=== PATIENT | female | born 1965 | race Caucasian/White ===

== ENCOUNTER 2016-10-01 19:42 | Emergency (ER) | payer MEDICARE ==
[~2016-10-01] VITALS: Ht 172.7 cm; Wt 45.1 kg
[~2016-10-01 19:42] MED LIST: ANAS0.12 PO; CARB25TA4 PO; CIPR500T4 PO; CLON1 PO; CYAN1000P IM; LORTA5 PO; METO10TA PO; METO50TA OR; MIRA0.25 PO; PERC5TAB12 PO; PROT40TA PO; RANI1TAB7 PO; ZOFR4TAB3 SL
[2016-10-01 19:59] VITALS: BP 96/58; PULSE 101; RESP 18; TEMP 97.9; O2SAT 99
[2016-10-01] MEDS ORDERED: SODIUM CHLOR 0.9% 1000 ML INJ 1,000 ML IV ONE ×2 (20:27→22:30)
[2016-10-01 20:28] VITALS: PULSE 93; RESP 18
[2016-10-01 20:37] VITALS: BP 89/63; PULSE 88; RESP 18; O2SAT 98
[2016-10-01 20:54] VITALS: PULSE 88; RESP 18; O2SAT 97
[2016-10-01 20:59] LABS: HEMATOCRIT 50.5 % (35.0-46.0); MEAN CELL VOLUME 90.5 FL (80.0-100.0); MEAN CORPUSCULAR HEMOGLOBIN 30.1 PG (27.0-34.0); MEAN CORPUSCULAR HGB CONC 33.3 % (32.0-36.0); PLATELET COUNT 293 TH/MM3 (150-450); RED BLOOD COUNT 5.58 MIL/MM3 (4.00-5.30); RED CELL DISTRIBUTION WIDTH 15.2 % (11.6-17.2); WHITE BLOOD COUNT 13.3 TH/MM3 (4.0-11.0)
[2016-10-01 21:00] LABS: POTASSIUM 3.5 MEQ/L (3.5-5.1)
[2016-10-01 21:03] LABS: BICARBONATE 23.1 MEQ/L (21.0-32.0); MAGNESIUM 3.1 MG/DL (1.5-2.5)
[2016-10-01 21:08] LABS: HEMO FLAGS AUTO DIFF
[2016-10-01] MEDS: ONDANSETRON HCL 4 MG/2 ML VIAL IVP ONE ×2 (21:14→21:45)
[2016-10-01] MEDS ORDERED: CYAN1000P IM (21:28)
[2016-10-01] MEDS ORDERED: HYOS0.128 PO (21:28)
[2016-10-01] MEDS ORDERED: METO25TA3 PO (21:28)
[2016-10-01] MEDS ORDERED: PANT40TA3 PO (21:28)
[2016-10-01] MEDS ORDERED: RANI150C PO (21:28)
[2016-10-01] MEDS ORDERED: CLON2TAB PO (21:28)
[2016-10-01] MEDS ORDERED: CARB25TA9 PO (21:28)
[2016-10-01] MEDS ORDERED: BUDE3CAP PO (21:28)
[2016-10-01 21:35] LABS: BASOPHILS 1 % (0-2); NEUTROPHIL # MANUAL DIFF 9.7 TH/MM3 (1.8-7.7); POLYS (SEG NEUTROPHILS) 73 % (16-70); WBC DIFF SAMPLE 100
[2016-10-01 21:36] LABS: PLATELET ESTIMATE SMEAR NORMAL (NORMAL); PLATELET MORPHOLOGY NORMAL (NORMAL); SCAN/DIFF FINAL DIFF MANUAL
--- NOTE | 2016-10-01 21:37 | RADHPO ---
EXAM DATE/TIME: 10/01/2016 20:57 [place] COMPARISON: No previous studies available for comparison. INDICATIONS : Abdominal pain. MEDICAL HISTORY : None. SURGICAL HISTORY : None. ENCOUNTER: Initial ACUITY: 3 days PAIN SCORE: 7/10 LOCATION: Bilateral lower quadrant FINDINGS: Supine and upright views of the abdomen were performed. The abdominal bowel gas pattern is normal. No air fluid levels are seen. No abnormal masses, calcifications, or organomegaly is seen. The visu alized lower lungs are clear. No evidence of free intraperitoneal gas. The osseous structures are u nremarkable. CONCLUSION: Normal examination. 2 radiopaque pills project over the stomach. Narciso Arndt MD on October 01, 2016 at 21:28 Board Certified Radiologist. This report was verified electronically.
--- NOTE | 2016-10-01 23:01 | PD ---
HPI Chief Complaint: General Weakness Time Seen by Provider: 20:27 Travel History International Travel<30 days: No Contact w/Intl Traveler<30days: No Traveled to known affect area: No History of Present Illness HPI 50-year-old female presents to the emergency department for complaint of 2 days of diarrhea. Patient frequently has sudden onset repetitive diarrhea due to diagnosis of lymphocytic colitis. Patient is under the care of specialist and recently placed on Budesonide. Patient denies any fever or chills. Mild nausea. No vomiting. Patient only has pain associated with cramping just prior to lose diarrheal stool. Patient states oral intake appears to go straight through and has become very dehydrated since yesterday patient estimates that she's lost 5 pounds. Patient denies any mucoid or bloody diarrhea. Patient denies any dysuria frequency or urgency but does note decreased urine output. Patient also has had cramping in the lower extremities. Patient has taken oral potassium replacement. Patient typically has issues with electrolyte disturbance associated with multiple episodes of diarrhea due to her chronic recurrent diarrheal illness/colitis. Patient is unable to identify exacerbating or alleviating factors. Pain associated with cramping just prior to diarrhea stool is 6/10 in intensity, presently patient denies pain. PFSH Past Medical History Narrative Medical Medical record reviewed nursing notes reviewed Anxiety: Yes Depression: Yes Heart Rhythm Problems: No Cancer: No Cardiac Catheterization: Yes Cardiovascular Problems: Yes (TACHYCARDIA) High Cholesterol: No Congestive Heart Failure: No Cerebrovascular Accident: No Diabetes: No Diminished Hearing: No Gastrointestinal Disorders: Yes GERD: Yes Genitourinary: No Headaches: Yes Hiatal Hernia: Yes (GERD) Musculoskeletal: No Neurologic: Yes (TRIGEMINAL NEURALGIA repaired surgically) Psychiatric: Yes Reproductive: No Respiratory: No Migraines: Yes Seizures: No Influenza Vaccination: Yes ?: Not Past Surgical History Abdominal Surgery: Yes (ABLATION) Cardiac Surgery: Yes (CARDIAC CATH) Coronary Artery Bypass Graft: No Ear Surgery: No Eye Surgery: No Gynecologic Surgery: Yes (CONE BX; UTERINE ABALATION) Oral Surgery: Yes (DENTAL) Thoracic Surgery: Yes (BREAST ) Other Surgery: Yes Social History Alcohol Use: Yes (socially) Tobacco Use: No Substance Use: No Allergies-Medications (Allergen,Severity, Reaction): Coded Allergies: No Known Allergies (Verified , 10/01/16) Reported Meds & Prescriptions Reported Meds & Active Scripts Active Reported Cyanocobalamin Inj (Cyanocobalamin) 1,000 Mcg/Ml Inj 1,000 Mcg IM Q30D Budesonide DR (Budesonide) 3 Mg Capdr 3 Mg PO DAILY Clonazepam 2 Mg Tab 2 Mg PO DAILY Carbidopa-Levodopa 25-100 Mg Tab 1 Tab PO Q8HR Pantoprazole (Pantoprazole Sodium) 40 Mg Tab 40 Mg PO DAILY Metoprolol Tartrate 25 Mg Tab 25 Mg PO BID Ranitidine (Ranitidine HCl) 150 Mg Cap 150 Mg PO DAILY Hyoscyamine (Hyoscyamine Sulfate) 0.125 Mg Tab 0.125 Mg PO Q4H Review of Systems Except as stated in HPI: all other systems reviewed are Neg General / Constitutional: Positive: Weight Loss (estimates 5 pound weight loss in 2 days), No: Fever, Chills HENT: No: Congestion Cardiovascular: No: Chest Pain or Discomfort Respiratory: No: Cough, Shortness of Breath Gastrointestinal: Positive: Nausea, Diarrhea, Abdominal Pain (with diarrhea cramping none at this time), No: Vomiting, Hematemesis, Hematochezia, Constipation, Loss of Appetite Genitourinary: Positive: Decreased Urinary Output, No: Urgency, Frequency, Dysuria Musculoskeletal: Positive: Cramping (bilateral lower extremities), No: Myalgias, Arthralgias Skin: No Rash Neurologic: No: Weakness Psychiatric: No: Anxiety Endocrine: No: Heat Intolerance Hematologic/Lymphatic: No: Easy Bruising Physical Exam Narrative GENERAL: Well-developed thin female in no acute distress no respiratory distress SKIN: Warm and dry. HEAD: Normocephalic. EYES: No scleral icterus. No injection or drainage. NECK: Supple, trachea midline. No JVD or lymphadenopathy. CARDIOVASCULAR: Regular rate and rhythm without murmurs, gallops, or rubs. RESPIRATORY: Breath sounds equal bilaterally. No accessory muscle use. GASTROINTESTINAL: Abdomen soft, non-tender, no guarding no rebound. Nondistended. MUSCULOSKELETAL: No cyanosis, or edema. BACK: Nontender without obvious deformity. No CVA tenderness. Data Data Last Documented VS Vital Signs Date Time Temp Pulse Resp B/P Pulse Ox O2 Delivery O2 Flow Rate FiO2 10/01/16 20:54 88 18 97 Room Air 10/01/16 20:37 89/63 10/01/16 19:59 97.9 Orders Complete Blood Count With Diff (10/01/16 20:27) Lipase (10/01/16 20:27) Abdomen, Flat & Upright (10/01/16 ) Iv Access Insert/Monitor (10/01/16 20:27) Ecg Monitoring (10/01/16 20:27) Oximetry (10/01/16 20:27) Ondansetron Inj (Zofran Inj) (10/01/16 20:30) Sodium Chlor 0.9% 1000 Ml Inj (Ns 1000 M (10/01/16 20:27) Ua Includes Microscopic (10/01/16 20:27) Enteric Path (Stool) (10/01/16 20:27) Basic Metabolic Panel (Bmp) (10/01/16 20:27) Magnesium (Mg) (10/01/16 20:27) Sodium Chlor 0.9% 1000 Ml Inj (Ns 1000 M (10/01/16 22:30) Labs Laboratory Tests Test 10/01/16 10/01/16 20:45 20:50 White Blood Count 13.3 TH/MM3 Red Blood Count 5.58 MIL/MM3 Hemoglobin 16.8 GM/DL Hematocrit 50.5 % Mean Corpuscular Volume 90.5 FL Mean Corpuscular Hemoglobin 30.1 PG Mean Corpuscular Hemoglobin 33.3 % Concent Red Cell Distribution Width 15.2 % Platelet Count 293 TH/MM3 Mean Platelet Volume 9.4 FL Neutrophils (%) (Auto) % Lymphocytes (%) (Auto) % Monocytes (%) (Auto) % Eosinophils (%) (Auto) % Basophils (%) (Auto) % Neutrophils # (Auto) TH/MM3 Lymphocytes # (Auto) TH/MM3 Monocytes # (Auto) TH/MM3 Eosinophils # (Auto) TH/MM3 Basophils # (Auto) TH/MM3 CBC Comment AUTO DIFF Differential Total Cells 100 Counted Neutrophils % (Manual) 73 % Lymphocytes % 17 % Monocytes % 9 % Basophils % 1 % Neutrophils # (Manual) 9.7 TH/MM3 Differential Comment FINAL DIFF MANUAL Platelet Estimate NORMAL Platelet Morphology Comment NORMAL Red Cell Morphology Comment NORMAL Sodium Level 129 MEQ/L Potassium Level 3.5 MEQ/L Chloride Level 91 MEQ/L Carbon Dioxide Level 23.1 MEQ/L Anion Gap 15 MEQ/L Blood Urea Nitrogen 43 MG/DL Creatinine 1.50 MG/DL Estimat Glomerular Filtration 37 ML/MIN Rate Random Glucose 91 MG/DL Calcium Level 9.9 MG/DL Magnesium Level 3.1 MG/DL Lipase 319 U/L Urine Color YELLOW Urine Turbidity SLIGHT Urine pH 5.0 Urine Specific [place] 1.022 Urine Protein 30 mg/dL Urine Glucose (UA) NEG mg/dL Urine Ketones NEG mg/dL Urine Occult Blood NEG Urine Nitrite NEG Urine Bilirubin NEG Urine Leukocyte Esterase NEG Urine RBC 0-3 /hpf Urine WBC 0-2 /hpf Urine Squamous Epithelial 0-5 /hpf Cells Urine Bacteria FEW /hpf Urine Hyaline Casts 25-49 /lpf Urine Mucus FEW /lpf MDM Medical Decision Making Medical Screen Exam Complete: Yes Emergency Medical Condition: Yes Medical Record Reviewed: Yes Interpretation(s) UA: grossly wnl few bacteria; specific gravity after 1.5 L NS ---1.022 Last Impressions Abdomen X-Ray 10/01/16 0000 Signed Impressions: Service Date/Time: Saturday, October 01, 2016 20:57 - CONCLUSION: Normal examination. 2 radiopaque pills project over the stomach. Narciso Arndt MD CBC & BMP Diagram 10/01/16 20:45 Vital Signs Date Time Temp Pulse Resp B/P Pulse Ox O2 Delivery O2 Flow Rate FiO2 10/01/16 20:54 88 18 97 Room Air 10/01/16 20:37 96 18 98 Room Air 10/01/16 20:37 88 18 89/63 98 Room Air 10/01/16 20:28 93 18 10/01/16 19:59 97.9 101 18 96/58 99 Differential Diagnosis Diarrheal illness, dehydration, electronic disturbance, gastroenteritis, adverse medication reaction, colitis, diverticulitis Narrative Course After 1/2 L of normal saline infusion patient able to produce urine; urine specimen sent for study Diagnosis Primary Impression: Diarrhea Additional Impressions: Dehydration Hyponatremia Renal insufficiency Referrals: Primary Care Physician 1 day Patient Instructions: General Instructions Additional Instructions: Increase fluid hydration Follow-up with your primary care provider Take medication as prescribed as needed for nausea and/or vomiting Take acetaminophen as needed for fever 100.4F or greater Med/Other Pt SpecificInfo: Prescription(s) given Scripts Ondansetron Odt (Zofran Odt)4 Mg Tab4 Mg SL Q6HR PRN (Nausea/Vomiting) #15 TAB Ref 0 Prov:Jeanne Wilcox MD 10/02/16 Disposition: 01 DISCHARGE HOME Condition: Stable Jeanne Wilcox MD Oct 01, 2016 23:00
[2016-10-01 23:07] LABS: BLOOD, URINE NEG (NEG); GLUCOSE,URINE NEG (NEG); KETONE, URINE NEG (NEG); NITRITE,URINE NEG (NEG)
[2016-10-01 23:21] LABS: URINE COLOR YELLOW (YELLW/STRAW)
[2016-10-01 23:22] LABS: MUCUS URINE FEW /lpf (OCC); SQUAMOUS EPITHELIAL CELL URINE 0-5 /hpf (0-5)
[2016-10-01 23:24] LABS: BACTERIA, URINE FEW /hpf; RBC, URINE 0-3 /hpf (0-3); WBC, URINE 0-2 /hpf (0-5)
[2016-10-02] MEDS ORDERED: ZOFR4TAB3 SL
[2016-10-02 00:07] VITALS: BP 92/46
[2016-10-02 00:08] VITALS: BP 92/46; PULSE 71; RESP 16; O2SAT 100
== END 2016-10-02 00:21 | disposition home or self-care (01) ==
LOC: PHED 19:42
DX: R19.7 Diarrhea, unspecified (principal); E86.0 Dehydration; E87.1 Hypo-osmolality and hyponatremia; N28.9 Disorder of kidney and ureter, unspecified; R00.0 Tachycardia, unspecified; K21.9 Gastro-esophageal reflux disease without esophagitis; R63.4 Abnormal weight loss; R11.0 Nausea; R10.9 Unspecified abdominal pain
CPT/HCPCS: 74020; 80048; 81001; 83690; 83735; 85007; 85027; 96361; 96374; 99284; J2405; J7030

== ENCOUNTER 2016-10-04 16:53 | Emergency (ER) | payer MEDICARE ==
[~2016-10-04] VITALS: Ht 172.7 cm; Wt 44.0 kg
[~2016-10-04 16:53] MED LIST changes: -ANAS0.12 PO; +BUDE3CAP PO; -CARB25TA4 PO; +CARB25TA9 PO; -CIPR500T4 PO; -CLON1 PO; +CLON2TAB PO; +HYOS0.128 PO; -LORTA5 PO; -METO10TA PO; +METO25TA3 PO; -METO50TA OR; -MIRA0.25 PO; +PANT40TA3 PO; -PERC5TAB12 PO; -PROT40TA PO; +RANI150C PO; -RANI1TAB7 PO
[2016-10-04 16:54] VITALS: BP 95/66; PULSE 112; RESP 18; TEMP 98; O2SAT 98
[2016-10-04] MEDS ORDERED: SODIUM CHLOR 0.9% 1000 ML INJ 1,000 ML IV SCH (17:29)
[2016-10-04] MEDS ORDERED: ONDANSETRON HCL 4 MG/2 ML VIAL IVP ONE (17:30)
[2016-10-04] MEDS ORDERED: SODIUM CHLORIDE 0.9% FLUSH 10 ML FLUSH IV FLUSH PRN (17:30)
--- NOTE | 2016-10-04 17:35 | PD ---
HPI Chief Complaint: GI Complaint Time Seen by Provider: 17:22 Travel History International Travel<30 days: No Contact w/Intl Traveler<30days: No Traveled to known affect area: No History of Present Illness HPI 50-year-old female with history of lymphocytic colitis, diarrhea, here for evaluation of possible dehydration. Patient was here 4 days ago for this same and felt better after receiving IV fluids. She is having intermittent abdominal cramping. Bowel movements are nonbloody. She feels nauseous, but has not vomited. She denies fevers or chills. PFSH Past Medical History Anxiety: Yes Depression: Yes Heart Rhythm Problems: No Cancer: No Cardiac Catheterization: Yes Cardiovascular Problems: Yes (TACHYCARDIA) High Cholesterol: No Congestive Heart Failure: No Cerebrovascular Accident: No Diabetes: No Diminished Hearing: No Gastrointestinal Disorders: Yes GERD: Yes Genitourinary: No Headaches: Yes Hiatal Hernia: Yes (GERD) Musculoskeletal: No Neurologic: Yes (TRIGEMINAL NEURALGIA repaired surgically) Psychiatric: Yes Reproductive: No Respiratory: No Migraines: Yes Seizures: No Tetanus Vaccination: > 5 Years Influenza Vaccination: Yes ?: Not Past Surgical History Abdominal Surgery: Yes (ABLATION) Cardiac Surgery: Yes (CARDIAC CATH) Coronary Artery Bypass Graft: No Ear Surgery: No Eye Surgery: No Gynecologic Surgery: Yes (CONE BX; UTERINE ABALATION) Oral Surgery: Yes (DENTAL) Thoracic Surgery: Yes (BREAST ) Other Surgery: Yes Social History Alcohol Use: Yes (socially) Tobacco Use: No Substance Use: No Allergies-Medications (Allergen,Severity, Reaction): Coded Allergies: No Known Allergies (Verified , 10/04/16) Reported Meds & Prescriptions Reported Meds & Active Scripts Active Zofran Odt (Ondansetron Odt) 4 Mg Tab 4 Mg SL Q6HR PRN Reported Cyanocobalamin Inj (Cyanocobalamin) 1,000 Mcg/Ml Inj 1,000 Mcg IM Q30D Budesonide DR (Budesonide) 3 Mg Capdr 3 Mg PO DAILY Clonazepam 2 Mg Tab 2 Mg PO DAILY Carbidopa-Levodopa 25-100 Mg Tab 1 Tab PO Q8HR Pantoprazole (Pantoprazole Sodium) 40 Mg Tab 40 Mg PO DAILY Metoprolol Tartrate 25 Mg Tab 25 Mg PO BID Ranitidine (Ranitidine HCl) 150 Mg Cap 150 Mg PO DAILY Hyoscyamine (Hyoscyamine Sulfate) 0.125 Mg Tab 0.125 Mg PO Q4H Review of Systems Except as stated in HPI: all other systems reviewed are Neg Physical Exam Narrative GENERAL: Well-developed, very thin, comfortable, no acute distress. SKIN: Focused skin assessment warm/dry. HEAD: Atraumatic. Normocephalic. EYES: Pupils equal and round. No scleral icterus. No injection or drainage. ENT: Mucous membranes pink and dry. NECK: Trachea midline. No JVD. CARDIOVASCULAR: Regular rate and rhythm. RESPIRATORY: No accessory muscle use. Clear to auscultation. Breath sounds equal bilaterally. GASTROINTESTINAL: Abdomen soft, non-tender, nondistended. MUSCULOSKELETAL: No obvious deformities. No clubbing. No cyanosis. No edema. NEUROLOGICAL: Awake and alert. No obvious cranial nerve deficits. Motor grossly within normal limits. Normal speech. PSYCHIATRIC: Appropriate mood and affect; insight and judgment normal. Data Data Last Documented VS Vital Signs Date Time Temp Pulse Resp B/P Pulse Ox O2 Delivery O2 Flow Rate FiO2 10/04/16 18:46 81 18 84/50 100 Room Air 10/04/16 16:54 98.0 Orders Complete Blood Count With Diff (10/04/16 17:29) Comprehensive Metabolic Panel (10/04/16 17:29) Urinalysis - C+S If Indicated (10/04/16 17:29) Iv Access Insert/Monitor (10/04/16 17:29) Ecg Monitoring (10/04/16 17:29) Oximetry (10/04/16 17:29) Ondansetron Inj (Zofran Inj) (10/04/16 17:30) Sodium Chlor 0.9% 1000 Ml Inj (Ns 1000 M (10/04/16 17:29) Sodium Chloride 0.9% Flush (Ns Flush) (10/04/16 17:30) Sodium Chlor 0.9% 1000 Ml Inj (Ns 1000 M (10/04/16 18:30) Urine Culture (10/04/16 18:45) Labs Laboratory Tests Test 10/04/16 10/04/16 17:35 18:45 White Blood Count 13.4 TH/MM3 Red Blood Count 5.70 MIL/MM3 Hemoglobin 16.9 GM/DL Hematocrit 51.3 % Mean Corpuscular Volume 90.0 FL Mean Corpuscular Hemoglobin 29.7 PG Mean Corpuscular Hemoglobin 33.0 % Concent Red Cell Distribution Width 15.1 % Platelet Count 295 TH/MM3 Mean Platelet Volume 9.8 FL Neutrophils (%) (Auto) 72.8 % Lymphocytes (%) (Auto) 13.2 % Monocytes (%) (Auto) 9.3 % Eosinophils (%) (Auto) 0.8 % Basophils (%) (Auto) 3.9 % Neutrophils # (Auto) 9.8 TH/MM3 Lymphocytes # (Auto) 1.8 TH/MM3 Monocytes # (Auto) 1.3 TH/MM3 Eosinophils # (Auto) 0.1 TH/MM3 Basophils # (Auto) 0.5 TH/MM3 CBC Comment DIFF FINAL Differential Comment Sodium Level 131 MEQ/L Potassium Level 3.5 MEQ/L Chloride Level 96 MEQ/L Carbon Dioxide Level 19.2 MEQ/L Anion Gap 16 MEQ/L Blood Urea Nitrogen 37 MG/DL Creatinine 1.50 MG/DL Estimat Glomerular Filtration 37 ML/MIN Rate Random Glucose 165 MG/DL Calcium Level 10.4 MG/DL Total Bilirubin 0.3 MG/DL Aspartate Amino Transf 38 U/L (AST/SGOT) Alanine Aminotransferase 39 U/L (ALT/SGPT) Alkaline Phosphatase 85 U/L Total Protein 9.0 GM/DL Albumin 4.8 GM/DL Urine Color YELLOW Urine Turbidity CLEAR Urine pH 5.0 Urine Specific [place] 1.026 Urine Protein 100 mg/dL Urine Glucose (UA) NEG mg/dL Urine Ketones TRACE mg/dL Urine Occult Blood TRACE Urine Nitrite NEG Urine Bilirubin NEG Urine Leukocyte Esterase NEG Urine RBC 0-3 /hpf Urine WBC 6-8 /hpf Urine Squamous Epithelial 0-5 /hpf Cells Urine Bacteria MOD /hpf Urine Hyaline Casts 10-14 /lpf Urine Mucus FEW /lpf Microscopic Urinalysis Comment CULTURE INDICATED MDM Medical Decision Making Medical Screen Exam Complete: Yes Emergency Medical Condition: Yes Differential Diagnosis Dehydration, metabolic abnormality Narrative Course Initial vital signs show heart rate of 112 which improved to 81 after a liter of normal saline IV, blood pressure 95/66, pulse ox 98% on room air, oral temp of 98F. CBC shows WBC 13.4, hemoglobin 16.9, hematocrit 51.3, platelets 295. CMP shows sodium 131, chloride 96, bicarbonate 19.2, anion gap 16, BUN 37, creatinine 1.5, GFR 37, calcium 10.4 UA shows trace ketones, trace occult blood, 6-8 WBCs, moderate bacteria, negative nitrites, negative leukocyte esterase. Will treat with Rocephin. Patient was given 2 L normal saline IV and IV Zofran and is feeling much better. She is tolerating clear liquids orally. She states she would like to be discharged home. I instructed her to follow up with her specialist at the [facility] this week. She was informed on when to return to the emergency department. She verbalizes understanding and agreement with plan. Diagnosis Primary Impression: Dehydration Additional Impressions: Diarrhea Qualified Code: R19.7 - Diarrhea, unspecified type Renal insufficiency Bacteriuria Referrals: Primary Care Physician 3 days Additional Instructions: Follow-up with your specialist at the [facility] this week. Stay hydrated with plenty of fluids. Return to the emergency department for worsening symptoms or any other concerns. Scripts Nitrofurantoin Monohydrate Macrocrystals (Macrobid)100 Mg [id number] Mg PO BID 5 Days Ref 0 Prov:Nicholas Holcomb MD 10/04/16 Ondansetron Odt (Zofran Odt)4 Mg Tab4 Mg SL Q8HR PRN (Nausea/Vomiting) #30 TAB Ref 3 Prov:Nicholas Holcomb MD 10/04/16 Disposition: 01 DISCHARGE HOME Condition: Stable Nicholas Holcomb MD Oct 04, 2016 17:35
[2016-10-04 17:49] LABS: AUTOMATED NEUTROPHIL # 9.8 TH/MM3 (1.8-7.7); BASOPHIL # 0.5 TH/MM3 (0-0.2); BASOPHIL % 3.9 % (0.0-2.0); EOSINOPHIL # 0.1 TH/MM3 (0-0.4); EOSINOPHIL % 0.8 % (0.0-4.0); HEMATOCRIT 51.3 % (35.0-46.0); HEMO FLAGS DIFF FINAL; LYMPH % 13.2 % (9.0-44.0); LYMPHOCYTE # 1.8 TH/MM3 (1.0-4.8); MEAN CORPUSCULAR HEMOGLOBIN 29.7 PG (27.0-34.0); MONO % 9.3 % (0.0-8.0); NEUT % 72.8 % (16.0-70.0); PLATELET COUNT 295 TH/MM3 (150-450); RED CELL DISTRIBUTION WIDTH 15.1 % (11.6-17.2); WHITE BLOOD COUNT 13.4 TH/MM3 (4.0-11.0)
[2016-10-04 17:58] LABS: CHLORIDE 96 MEQ/L (98-107); POTASSIUM 3.5 MEQ/L (3.5-5.1); SODIUM (NA) 131 MEQ/L (136-145)
[2016-10-04 17:59] VITALS: RESP 18; O2SAT 96
[2016-10-04 18:01] LABS: ANION GAP 16 MEQ/L (5-15); BICARBONATE 19.2 MEQ/L (21.0-32.0); BLOOD UREA NITROGEN 37 MG/DL (7-18)
[2016-10-04 18:04] LABS: ALT (GPT) 39 U/L (10-53); AST (GOT) 38 U/L (15-37); GLOMERULAR FILTRATION RATE 37 ML/MIN (>89)
[2016-10-04 18:06] LABS: TOTAL BILIRUBIN ADULT 0.3 MG/DL (0.2-1.0)
[2016-10-04 18:07] LABS: ALKALINE PHOSPHATASE 85 U/L (45-117)
[2016-10-04] MEDS ORDERED: SODIUM CHLOR 0.9% 1000 ML INJ 1,000 ML IV ONE (18:30)
[2016-10-04 18:46] VITALS: BP 84/50; PULSE 81; RESP 18; O2SAT 100
[2016-10-04 18:56] LABS: BLOOD, URINE TRACE (NEG); GLUCOSE,URINE NEG (NEG); KETONE, URINE TRACE mg/dL (NEG); NITRITE,URINE NEG (NEG)
[2016-10-04 19:05] LABS: URINE COLOR YELLOW (YELLW/STRAW)
[2016-10-04 19:06] LABS: MUCUS URINE FEW /lpf (OCC)
[2016-10-04 19:07] LABS: BACTERIA, URINE MOD /hpf; COMMENT (UR) CULTURE INDICATED; CULTURE IF INDICATED CULTURE INDICATED; RBC, URINE 0-3 /hpf (0-3); SQUAMOUS EPITHELIAL CELL URINE 0-5 /hpf (0-5)
[2016-10-04] MEDS ORDERED: ZOFR4TAB3 SL (19:23)
[2016-10-04] MEDS ORDERED: MACR100C2 PO (19:23)
[2016-10-04] MEDS ORDERED: cefTRIAXone INJ 1,000 MG in SODIUM CHLORIDE 0.9% INJ 100 ML IV ONE (19:30)
[2016-10-04 20:15] VITALS: BP 91/57; PULSE 78; RESP 18; O2SAT 100
== END 2016-10-04 20:39 | disposition home or self-care (01) ==
LOC: PHED 16:53
DX: E86.0 Dehydration (principal); R19.7 Diarrhea, unspecified; N28.9 Disorder of kidney and ureter, unspecified; R82.71 Bacteriuria; R11.0 Nausea; Z87.19 Personal history of other diseases of the digestive system; Z86.59 Personal history of other mental and behavioral disorders; Z86.79 Personal history of other diseases of the circulatory system; Z86.69 Personal history of other diseases of the nervous system and sense organs
CPT/HCPCS: 80053; 81001; 85025; 87086; 96361; 96365; 96375; 99284; J0696; J2405; J7030

== ENCOUNTER 2016-11-22 07:36 | Emergency (ER) | payer MEDICARE ==
[~2016-11-22] VITALS: Ht 172.7 cm; Wt 46.8 kg
[~2016-11-22 07:36] MED LIST changes: +MACR100C2 PO
[2016-11-22 07:45] VITALS: BP 90/57; PULSE 82; RESP 16; TEMP 97.8; O2SAT 100
[2016-11-22] MEDS ORDERED: ONDANSETRON HCL 4 MG/2 ML VIAL IVP ONE (07:45)
[2016-11-22] MEDS ORDERED: SODIUM CHLOR 0.9% 1000 ML INJ 1,000 ML IV SCH (07:45)
[2016-11-22] MEDS ORDERED: SODIUM CHLORIDE 0.9% FLUSH 10 ML FLUSH IV FLUSH PRN (07:45)
--- NOTE | 2016-11-22 07:57 | PD ---
HPI Chief Complaint: Abdominal Pain Time Seen by Provider: 07:43 Travel History International Travel<30 days: No Contact w/Intl Traveler<30days: No Traveled to known affect area: No History of Present Illness HPI Patient is a 51-year-old female with history of trigeminal neuralgia, lymphocytic colitis currently being treated at the [facility], presents to emergency room with complaints of abdominal pain, nausea vomiting and chronic diarrhea. Patient reports that she always has diarrhea which is at her baseline , that this morning, she has been feeling nauseous and has been vomiting. Reports that she has been having severe epigastric abdominal pain is concerned for possible pancreatitis. Patient reports that she has never been diagnosed with pancreatitis in the past, reports that she thinks that she has had pancreatitis but did not follow-up physician for this when she had her symptoms. Patient reports that locally, she does follow with Dr. Otero in the office. Reports that no one knows how to treat her lymphocytic colitis. Patient currently not on any antibiotics at this time. Patient denies any fevers or chills or any recent travels. PFSH Past Medical History Anxiety: Yes Depression: Yes Heart Rhythm Problems: No Cancer: No Cardiac Catheterization: Yes Cardiovascular Problems: Yes (TACHYCARDIA) High Cholesterol: No Congestive Heart Failure: No Cerebrovascular Accident: No Diabetes: No Diminished Hearing: No Gastrointestinal Disorders: Yes (LYMPHOCYTIC COLITIS ) GERD: Yes Genitourinary: No Headaches: Yes Hiatal Hernia: Yes (GERD) Musculoskeletal: No Neurologic: Yes (TRIGEMINAL NEURALGIA repaired surgically) Psychiatric: Yes Reproductive: No Respiratory: No Migraines: Yes Seizures: No Tetanus Vaccination: > 5 Years ?: Not Past Surgical History Abdominal Surgery: Yes (ABLATION) Cardiac Surgery: Yes (CARDIAC CATH) Coronary Artery Bypass Graft: No Ear Surgery: No Eye Surgery: No Gynecologic Surgery: Yes (CONE BX; UTERINE ABALATION) Oral Surgery: Yes (DENTAL) Thoracic Surgery: Yes (BREAST ) Other Surgery: Yes Social History Alcohol Use: Yes (socially) Tobacco Use: No Substance Use: No Allergies-Medications (Allergen,Severity, Reaction): Coded Allergies: No Known Allergies (Verified , 11/22/16) Reported Meds & Prescriptions Reported Meds & Active Scripts Active Macrobid (Nitrofurantoin Monoh/Nitrofur Macro) 100 Mg Cap 100 Mg PO BID 5 Days Zofran Odt (Ondansetron Odt) 4 Mg Tab 4 Mg SL Q8HR PRN Zofran Odt (Ondansetron Odt) 4 Mg Tab 4 Mg SL Q6HR PRN Reported Cyanocobalamin Inj (Cyanocobalamin) 1,000 Mcg/Ml Inj 1,000 Mcg IM Q30D Budesonide DR (Budesonide) 3 Mg Capdr 3 Mg PO DAILY Clonazepam 2 Mg Tab 2 Mg PO DAILY Carbidopa-Levodopa 25-100 Mg Tab 1 Tab PO Q8HR Pantoprazole (Pantoprazole Sodium) 40 Mg Tab 40 Mg PO DAILY Metoprolol Tartrate 25 Mg Tab 25 Mg PO BID Ranitidine (Ranitidine HCl) 150 Mg Cap 150 Mg PO DAILY Hyoscyamine (Hyoscyamine Sulfate) 0.125 Mg Tab 0.125 Mg PO Q4H Review of Systems General / Constitutional: No: Fever Eyes: No: Visual changes HENT: No: Headaches Cardiovascular: No: Chest Pain or Discomfort Respiratory: No: Shortness of Breath Gastrointestinal: Positive: Nausea, Vomiting, Diarrhea, Abdominal Pain Genitourinary: No: Dysuria Musculoskeletal: No: Pain Skin: No Rash Neurologic: No: Weakness Psychiatric: No: Depression Endocrine: No: Polydipsia Hematologic/Lymphatic: No: Easy Bruising Physical Exam Narrative GENERAL: Moderate distress SKIN: Focused skin assessment warm/dry. HEAD: Atraumatic. Normocephalic. EYES: Pupils equal and round. No scleral icterus. No injection or drainage. ENT: No nasal bleeding or discharge. Mucous membranes pink and moist. NECK: Trachea midline. No JVD. CARDIOVASCULAR: Regular rate and rhythm. No murmur appreciated. RESPIRATORY: No accessory muscle use. Clear to auscultation. Breath sounds equal bilaterally. GASTROINTESTINAL: Abdomen soft, tenderness to the epigastrium with guarding on exam. MUSCULOSKELETAL: No obvious deformities. No clubbing. No cyanosis. No edema. NEUROLOGICAL: Awake and alert. No obvious cranial nerve deficits. Motor grossly within normal limits. Normal speech. PSYCHIATRIC: Patient anxious Data Data Last Documented VS Vital Signs Date Time Temp Pulse Resp B/P Pulse Ox O2 Delivery O2 Flow Rate FiO2 11/22/16 11:04 67 16 88/54 99 Room Air 11/22/16 08:29 97.8 Orders Urinalysis - C+S If Indicated (11/22/16 07:37) Complete Blood Count With Diff (11/22/16 07:45) Comprehensive Metabolic Panel (11/22/16 07:45) Lipase (11/22/16 07:45) Prothrombin Time / Inr (Pt) (11/22/16 07:45) Act Partial Throm Time (Ptt) (11/22/16 07:45) Iv Access Insert/Monitor (11/22/16 07:45) Ecg Monitoring (11/22/16 07:45) Oximetry (11/22/16 07:45) Ondansetron Inj (Zofran Inj) (11/22/16 07:45) Sodium Chlor 0.9% 1000 Ml Inj (Ns 1000 M (11/22/16 07:45) Sodium Chloride 0.9% Flush (Ns Flush) (11/22/16 07:45) Ed Urine Pregnancytest Poc (11/22/16 07:45) Ct Abd/Pel W Iv Contrast(Rout) (11/22/16 07:51) Sodium Chlor 0.9% 1000 Ml Inj (Ns 1000 M (11/22/16 08:00) Morphine Inj (Morphine Inj) (11/22/16 08:00) Potassium Chloride Powder (Kcl Powder) (11/22/16 09:00) Potassium Phosphate Inj (Potassium Phosp (11/22/16 09:00) Sodium Chlor 0.9% 1000 Ml Inj (Ns 1000 M (11/22/16 09:45) Iohexol 350 Inj (Omnipaque 350 Inj) (11/22/16 10:09) Calcium Gluconate Inj (Calcium Gluconate (11/22/16 11:15) Labs Laboratory Tests Test 11/22/16 11/22/16 08:02 10:10 White Blood Count 14.7 TH/MM3 Red Blood Count 5.40 MIL/MM3 Hemoglobin 16.4 GM/DL Hematocrit 51.1 % Mean Corpuscular Volume 94.6 FL Mean Corpuscular Hemoglobin 30.3 PG Mean Corpuscular Hemoglobin 32.0 % Concent Red Cell Distribution Width 14.8 % Platelet Count 281 TH/MM3 Mean Platelet Volume 10.4 FL Neutrophils (%) (Auto) % Lymphocytes (%) (Auto) % Monocytes (%) (Auto) % Eosinophils (%) (Auto) % Basophils (%) (Auto) % Neutrophils # (Auto) TH/MM3 Lymphocytes # (Auto) TH/MM3 Monocytes # (Auto) TH/MM3 Eosinophils # (Auto) TH/MM3 Basophils # (Auto) TH/MM3 CBC Comment AUTO DIFF Differential Total Cells 100 Counted Neutrophils % (Manual) 81 % Lymphocytes % 8 % Monocytes % 11 % Neutrophils # (Manual) 11.9 TH/MM3 Differential Comment AUTO DIFF CONFIRMED Platelet Estimate NORMAL Platelet Morphology Comment NORMAL Prothrombin Time 10.3 SEC Prothromb Time International 0.9 RATIO Ratio Activated Partial 26.0 SEC Thromboplast Time Sodium Level 139 MEQ/L Potassium Level 2.6 MEQ/L Chloride Level 101 MEQ/L Carbon Dioxide Level 28.7 MEQ/L Anion Gap 9 MEQ/L Blood Urea Nitrogen 12 MG/DL Creatinine 0.99 MG/DL Estimat Glomerular Filtration 60 ML/MIN Rate Random Glucose 135 MG/DL Calcium Level 7.3 MG/DL Protein Corrected Calcium 7.7 MG/DL Total Bilirubin 0.4 MG/DL Aspartate Amino Transf 58 U/L (AST/SGOT) Alanine Aminotransferase 37 U/L (ALT/SGPT) Alkaline Phosphatase 62 U/L Total Protein 6.4 GM/DL Albumin 3.1 GM/DL Lipase 479 U/L Urine Collection Type CLEAN CATCH Urine Color QUINN Urine Turbidity CLEAR Urine pH 5.5 Urine Specific [place] 1.030 Urine Protein 100 mg/dL Urine Glucose (UA) 100 mg/dL Urine Ketones TRACE mg/dL Urine Occult Blood TRACE Urine Nitrite NEG Urine Bilirubin SMALL Urine Leukocyte Esterase NEG Urine RBC 0-3 /hpf Urine WBC 0-2 /hpf Urine Squamous Epithelial 0-5 /hpf Cells Urine Hyaline Casts 25-49 /lpf Microscopic Urinalysis Comment CULT NOT INDICATED Urine Collection Time 10:10 [facility] Medical Decision Making Medical Screen Exam Complete: Yes Emergency Medical Condition: Yes Interpretation(s) Vital Signs Date Time Temp Pulse Resp B/P Pulse Ox O2 Delivery O2 Flow Rate FiO2 11/22/16 07:45 16 11/22/16 07:45 97.8 82 16 90/57 100 Room Air Differential Diagnosis Cystitis, dehydration, electrolyte abnormality, pancreatitis, colitis, gastroenteritis Narrative Course 51-year-old female with history of lymphocytic colitis presents to emergency room with complaints of nausea, vomiting and diarrhea since this morning. Reports that she has been having severe epigastric pain, reports the pain is more severe than in the past when she has had the symptoms. Patient uncomfortable exam, patient was placed on a rapid transit operator upon arrival to the emergency room. CBC, BMP, lipase, ct of the abdomen and pelvis ordered for further evaluation of symptoms. Will give IV fluids and pain control this time. Vital Signs Date Time Temp Pulse Resp B/P Pulse Ox O2 Delivery O2 Flow Rate FiO2 11/22/16 11:04 67 16 88/54 99 Room Air 11/22/16 09:46 66 16 86/58 98 Room Air 11/22/16 09:46 16 11/22/16 08:29 97.8 82 16 90/57 100 11/22/16 08:07 100 Room Air 11/22/16 07:45 16 11/22/16 07:45 97.8 82 16 90/57 100 Room Air Laboratory Tests Test 11/22/16 11/22/16 08:02 10:10 White Blood Count 14.7 TH/MM3 (4.0-11.0) Red Blood Count 5.40 MIL/MM3 (4.00-5.30) Hemoglobin 16.4 GM/DL (11.6-15.3) Hematocrit 51.1 % (35.0-46.0) Mean Corpuscular Volume 94.6 FL (80.0-100.0) Mean Corpuscular Hemoglobin 30.3 PG (27.0-34.0) Mean Corpuscular Hemoglobin 32.0 % Concent (32.0-36.0) Red Cell Distribution Width 14.8 % (11.6-17.2) Platelet Count 281 TH/MM3 (150-450) Mean Platelet Volume 10.4 FL (7.0-11.0) Neutrophils (%) (Auto) % (16.0-70.0) Lymphocytes (%) (Auto) % (9.0-44.0) Monocytes (%) (Auto) % (0.0-8.0) Eosinophils (%) (Auto) % (0.0-4.0) Basophils (%) (Auto) % (0.0-2.0) Neutrophils # (Auto) TH/MM3 (1.8-7.7) Lymphocytes # (Auto) TH/MM3 (1.0-4.8) Monocytes # (Auto) TH/MM3 (0-0.9) Eosinophils # (Auto) TH/MM3 (0-0.4) Basophils # (Auto) TH/MM3 (0-0.2) CBC Comment AUTO DIFF Differential Total Cells 100 Counted Neutrophils % (Manual) 81 % (16-70) Lymphocytes % 8 % (9-44) Monocytes % 11 % (0-8) Neutrophils # (Manual) 11.9 TH/MM3 (1.8-7.7) Differential Comment AUTO DIFF CONFIRMED Platelet Estimate NORMAL (NORMAL) Platelet Morphology Comment NORMAL (NORMAL) Prothrombin Time 10.3 SEC (9.8-11.6) Prothromb Time International 0.9 RATIO Ratio Activated Partial 26.0 SEC Thromboplast Time (24.3-30.1) Sodium Level 139 MEQ/L (136-145) Potassium Level 2.6 MEQ/L (3.5-5.1) Chloride Level 101 MEQ/L (98-107) Carbon Dioxide Level 28.7 MEQ/L (21.0-32.0) Anion Gap 9 MEQ/L (5-15) Blood Urea Nitrogen 12 MG/DL (7-18) Creatinine 0.99 MG/DL (0.50-1.00) Estimat Glomerular Filtration 60 ML/MIN (>89) Rate Random Glucose 135 MG/DL (74-106) Calcium Level 7.3 MG/DL (8.5-10.1) Protein Corrected Calcium 7.7 MG/DL (8.5-10.1) Total Bilirubin 0.4 MG/DL (0.2-1.0) Aspartate Amino Transf 58 U/L (15-37) (AST/SGOT) Alanine Aminotransferase 37 U/L (10-53) (ALT/SGPT) Alkaline Phosphatase 62 U/L (45-117) Total Protein 6.4 GM/DL (6.4-8.2) Albumin 3.1 GM/DL (3.4-5.0) Lipase 479 U/L (73-393) Urine Collection Type CLEAN CATCH Urine Color QUINN (YELLW/STRAW) Urine Turbidity CLEAR (CLEAR) Urine pH 5.5 (5.0-8.5) Urine Specific [place] 1.030 (1.002-1.035) Urine Protein 100 mg/dL (NEG-TRACE) Urine Glucose (UA) 100 mg/dL (NEG) Urine Ketones TRACE mg/dL (NEG) Urine Occult Blood TRACE (NEG) Urine Nitrite NEG (NEG) Urine Bilirubin SMALL (NEG) Urine Leukocyte Esterase NEG (NEG) Urine RBC 0-3 /hpf (0-3) Urine WBC 0-2 /hpf (0-5) Urine Squamous Epithelial 0-5 /hpf (0-5) Cells Urine Hyaline Casts 25-49 /lpf (RARE) Microscopic Urinalysis Comment CULT NOT INDICATED Urine Collection Time 10:10 Patient reevaluated, patient reports that she is feeling much better at this time. She reports resolution of abdominal pain, reports resolution of nausea and vomiting. I did offer patient observation to the hospital for pancreatitis , patient prefers to be discharged home. She will eat a bland diet while at home. I reviewed all labs and all studies with patient in detail, she will follow up with her woods boss as well as her primary care doctor and will return to emergency room as needed. Diagnosis Primary Impression: Nausea vomiting and diarrhea Additional Impressions: Pancreatitis Hypokalemia Hypocalcemia Patient Instructions: Narcotic given in the ED, General Instructions Additional Instructions: Please give a copy of pt's lab work and studies at discharge Please return to the emergency room as needed or if symptoms worsen or progress Please follow up with you primary care doctor as well as your woods boss Please eat a bland diet Return to the ER as needed Med/Other Pt SpecificInfo: Prescription(s) given Scripts Ondansetron (Zofran)4 Mg Tab4 Mg PO Q6HR PRN (NAUSEA OR VOMITING) #20 TAB Ref 0 Prov:Melany Obregon DO 11/22/16 Disposition: 01 DISCHARGE HOME Condition: Stable Melany Obregon DO Nov 22, 2016 07:57
[2016-11-22] MEDS ORDERED: SODIUM CHLOR 0.9% 1000 ML INJ 1,000 ML IV ONE ×2 (08:00→09:45)
[2016-11-22] MEDS ORDERED: MORPHINE SULFATE 4 MG/ML INJ IV PUSH ONE (08:00)
[2016-11-22 08:07] VITALS: O2SAT 100
[2016-11-22 08:24] LABS: INTERNATIONAL NORMALIZED RATIO 0.9 RATIO; PROTHROMBIN TIME - PATIENT 10.3 SEC (9.8-11.6)
[2016-11-22 08:29] VITALS: BP 90/57; PULSE 82; RESP 16; TEMP 97.8; O2SAT 100
[2016-11-22 08:35] LABS: HEMATOCRIT 51.1 % (35.0-46.0); MEAN CELL VOLUME 94.6 FL (80.0-100.0); MEAN CORPUSCULAR HEMOGLOBIN 30.3 PG (27.0-34.0); PLATELET COUNT 281 TH/MM3 (150-450); RED CELL DISTRIBUTION WIDTH 14.8 % (11.6-17.2); WHITE BLOOD COUNT 14.7 TH/MM3 (4.0-11.0)
[2016-11-22 08:38] LABS: HEMO FLAGS AUTO DIFF
[2016-11-22 08:53] LABS: BICARBONATE 28.7 MEQ/L (21.0-32.0); CALCIUM-PROTEIN CORRECTED 7.7 MG/DL (8.5-10.1); TOTAL BILIRUBIN ADULT 0.4 MG/DL (0.2-1.0)
[2016-11-22 08:54] LABS: POTASSIUM 2.6 MEQ/L (3.5-5.1)
[2016-11-22] MEDS ORDERED: POTASSIUM PHOSPHATE INJ 15 MMOL in SODIUM CHLORIDE 0.9% INJ 150 ML IV ONE (09:00)
[2016-11-22] MEDS ORDERED: POTASSIUM CHLORIDE 20 MEQ PWD PACKET PO ONE (09:00)
[2016-11-22 09:07] LABS: NEUTROPHIL # MANUAL DIFF 11.9 TH/MM3 (1.8-7.7); PLATELET ESTIMATE SMEAR NORMAL (NORMAL); PLATELET MORPHOLOGY NORMAL (NORMAL); POLYS (SEG NEUTROPHILS) 81 % (16-70); SCAN/DIFF AUTO DIFF CONFIRMED; WBC DIFF SAMPLE 100
[2016-11-22 09:46] VITALS: BP 86/58; PULSE 66; RESP 16; O2SAT 98
[2016-11-22] MEDS ORDERED: IOHEXOL 350 MG/ML 10 ML VIAL (for RAD DIAG) IV ONE (10:09)
--- NOTE | 2016-11-22 10:35 | RADHPO ---
EXAM DATE/TIME: 11/22/2016 09:57 [facility] COMPARISON: No previous studies available for comparison. INDICATIONS : Epigastric pain. Nausea, vomiting and diarrhea. IV CONTRAST: 75 cc Omnipaque 350 (iohexol) IV ORAL CONTRAST: No oral contrast ingested. RADIATION DOSE: 4.67 CTDIvol (mGy) MEDICAL HISTORY : Gastroesophageal reflux disease. Cardiovascular disease Hernia, hiatal. SURGICAL HISTORY : None. ENCOUNTER: Initial ACUITY: 2 days PAIN SCALE: 7/10 LOCATION: Epigastric TECHNIQUE: Volumetric scanning of the abdomen and pelvis was performed. Using automated exposure control and ad justment of the mA and/or kV according to patient size, radiation dose was kept as low as reasonably achievable to obtain optimal diagnostic quality images. FINDINGS: The lung bases are clear. Liver, spleen, pancreas and adrenals are unremarkable. There are scattered air fluid levels in both large and small bowel without dilatation or bowel wall e nhancement. There are no inflammatory changes within the mesentery. Region of the cecum and terminal ileum are unremarkable. In the pelvis: There is no free fluid. Air fluid levels are present in both large and small bowel into the pelvis. Uterus and adnexal regions are unremarkable. There is no adenopathy. CONCLUSION: 1. Non-specific air fluid levels in both large and small bowel without evidence for transrenal inflam mation. 2. There is no adenopathy. 3. There is no free fluid or free air. 4. There are no renal stones identified. Mason Chinchilla MD FACR on November 22, 2016 at 10:16 Board Certified Radiologist. This report was verified electronically.
[2016-11-22 10:43] LABS: BLOOD, URINE TRACE (NEG); GLUCOSE,URINE 100 mg/dL (NEG); KETONE, URINE TRACE mg/dL (NEG); NITRITE,URINE NEG (NEG); PH, URINE 5.5 (5.0-8.5)
[2016-11-22 10:53] LABS: METHOD OF COLLECTION CLEAN CATCH; URINE COLOR AMBER (YELLW/STRAW)
[2016-11-22 10:54] LABS: RBC, URINE 0-3 /hpf (0-3); SQUAMOUS EPITHELIAL CELL URINE 0-5 /hpf (0-5); WBC, URINE 0-2 /hpf (0-5)
[2016-11-22 10:55] LABS: COMMENT (UR) CULT NOT INDICATED; CULTURE IF INDICATED CULT NOT INDICATED
[2016-11-22 11:04] VITALS: BP 88/54; PULSE 67; RESP 16; O2SAT 99
[2016-11-22] MEDS ORDERED: CALCIUM GLUCONATE INJ 1 GM in DEXTROSE 5% IN WATER 100ML INJ 100 ML IV ONE ×2 (11:15)
[2016-11-22] MEDS ORDERED: ZOFR4TAB PO (11:24)
[2016-11-23] MEDS ORDERED: PRAM0.5T PO (14:02)
[2016-11-23] MEDS ORDERED: PROM25TA10 PO (16:29)
[2016-11-23] MEDS ORDERED: ZOFR4TAB3 SL (16:29)
[2016-11-23] MEDS ORDERED: TRAM50TA PO (16:31)
== END 2016-11-22 12:32 | disposition home or self-care (01) ==
LOC: PHED 07:36
DX: R11.2 Nausea with vomiting, unspecified (principal); R19.7 Diarrhea, unspecified; K85.90 Acute pancreatitis without necrosis or infection, unspecified; E87.6 Hypokalemia; E83.51 Hypocalcemia
CPT/HCPCS: 74177; 80053; 81001; 83690; 84703; 85025; 85610; 85730; 96361; 96365; 96366; 96367; 96375; 99285; J0610; J2270; J2405; J7030; Q9967

== ENCOUNTER 2016-11-23 13:42 | Emergency (ER) | payer MEDICARE ==
[~2016-11-23] VITALS: Ht 167.6 cm; Wt 46.0 kg
[~2016-11-23 13:42] MED LIST changes: +ZOFR4TAB PO
[2016-11-23 13:46] VITALS: BP 106/38; PULSE 93; RESP 16; TEMP 98.1; O2SAT 98
[2016-11-23] MEDS ORDERED: SODIUM CHLOR 0.9% 1000 ML INJ 1,000 ML IV SCH (13:58)
[2016-11-23] MEDS ORDERED: ONDANSETRON HCL 4 MG/2 ML VIAL IVP ONE (14:00)
[2016-11-23] MEDS ORDERED: HYDROmorphone HCL PF 1 MG/ML VIAL IVS ONE (14:00)
[2016-11-23] MEDS ORDERED: SODIUM CHLORIDE 0.9% FLUSH 10 ML FLUSH IV FLUSH PRN (14:00)
[2016-11-23] MEDS ORDERED: PRAM0.5T PO (14:02)
--- NOTE | 2016-11-23 14:02 | PD ---
HPI Chief Complaint: GI Complaint Time Seen by Provider: 13:56 Travel History International Travel<30 days: No Contact w/Intl Traveler<30days: No Traveled to known affect area: No History of Present Illness HPI 51-year-old female with history of lymphocytic colitis, pancreatitis, trigeminal neuralgia, seen in the ER yesterday for pancreatitis and vomiting, presents back to the ER today because she states that she is continuing to have nausea, vomiting, multiple episodes of diarrhea, not able to keep anything down despite Zofran treatment. She has also been having a 8 out of 10 left flank pain. She states is been continuing since yesterday. She denies any fevers or any other symptoms. 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) Diabetes: No Diminished Hearing: No Gastrointestinal Disorders: Yes (LYMPHOCYTIC COLITIS ) GERD: Yes Genitourinary: No Headaches: Yes Hiatal Hernia: Yes (GERD) Musculoskeletal: No Neurologic: Yes (TRIGEMINAL NEURALGIA repaired surgically) Psychiatric: Yes Reproductive: No Respiratory: No Migraines: Yes Seizures: No ?: Not Past Surgical History Abdominal Surgery: Yes (ABLATION) Cardiac Surgery: Yes (CARDIAC CATH) Coronary Artery Bypass Graft: No Ear Surgery: No Eye Surgery: No Gynecologic Surgery: Yes (CONE BX; UTERINE ABALATION) Oral Surgery: Yes (DENTAL) Thoracic Surgery: Yes (BREAST ) Other Surgery: Yes Social History Alcohol Use: Yes (socially) Tobacco Use: No Substance Use: No Allergies-Medications (Allergen,Severity, Reaction): Coded Allergies: No Known Allergies (Verified , 11/23/16) Reported Meds & Prescriptions Reported Meds & Active Scripts Active Tramadol (Tramadol HCl) 50 Mg Tab 50 Mg PO Q4H PRN Phenergan (Promethazine HCl) 25 Mg Tablet 25 Mg PO Q6H PRN Zofran Odt (Ondansetron Odt) 4 Mg Tab 4 Mg SL Q6HR PRN Zofran Odt (Ondansetron Odt) 4 Mg Tab 4 Mg SL Q6HR PRN Reported Pramipexole (Pramipexole Dihydrochloride) 0.5 Mg Tab 0.5 Mg PO DAILY Cyanocobalamin Inj (Cyanocobalamin) 1,000 Mcg/Ml Inj 1,000 Mcg IM Q30D Clonazepam 2 Mg Tab 2 Mg PO DAILY Carbidopa-Levodopa 25-100 Mg Tab 1 Tab PO Q8HR Pantoprazole (Pantoprazole Sodium) 40 Mg Tab 40 Mg PO DAILY Metoprolol Tartrate 25 Mg Tab 25 Mg PO BID Ranitidine (Ranitidine HCl) 150 Mg Cap 150 Mg PO DAILY Hyoscyamine (Hyoscyamine Sulfate) 0.125 Mg Tab 0.125 Mg PO Q4H Review of Systems Except as stated in HPI: all other systems reviewed are Neg Physical Exam Narrative GENERAL: Well-developed thin middle age white female patient currently in moderate distress. Awake and oriented 3. SKIN: Focused skin assessment warm/dry. HEAD: Atraumatic. Normocephalic. EYES: Pupils equal and round. No scleral icterus. No injection or drainage. ENT: No nasal bleeding or discharge. Mucous membranes pink and moist. NECK: Trachea midline. No JVD. CARDIOVASCULAR: Regular rate and rhythm. No murmur appreciated. RESPIRATORY: No accessory muscle use. Clear to auscultation. Breath sounds equal bilaterally. GASTROINTESTINAL: Abdomen soft, non-tender, nondistended. Hepatic and splenic margins not palpable. MUSCULOSKELETAL: No obvious deformities. No clubbing. No cyanosis. No edema. NEUROLOGICAL: Awake and alert. No obvious cranial nerve deficits. Motor grossly within normal limits. Normal speech. PSYCHIATRIC: Appropriate mood and affect; insight and judgment normal. Data Data Last Documented VS Vital Signs Date Time Temp Pulse Resp B/P Pulse Ox O2 Delivery O2 Flow Rate FiO2 11/23/16 16:52 78 16 85/58 11/23/16 16:14 100 11/23/16 13:46 98.1 Orders Complete Blood Count With Diff (11/23/16 13:58) Comprehensive Metabolic Panel (11/23/16 13:58) Lipase (11/23/16 13:58) Urinalysis - C+S If Indicated (11/23/16 13:58) Iv Access Insert/Monitor (11/23/16 13:58) Ecg Monitoring (11/23/16 13:58) Oximetry (11/23/16 13:58) Ondansetron Inj (Zofran Inj) (11/23/16 14:00) Sodium Chlor 0.9% 1000 Ml Inj (Ns 1000 M (11/23/16 13:58) Sodium Chloride 0.9% Flush (Ns Flush) (11/23/16 14:00) Hydromorphone Pf Inj (Dilaudid Pf Inj) (11/23/16 14:00) Sodium Chlor 0.9% 1000 Ml Inj (Ns 1000 M (11/23/16 15:15) Potassium Chloride (Kcl) (11/23/16 15:15) Tramadol (Ultram) (11/23/16 16:45) Labs Laboratory Tests Test 11/23/16 11/23/16 14:12 16:10 White Blood Count 8.6 TH/MM3 Red Blood Count 5.48 MIL/MM3 Hemoglobin 16.8 GM/DL Hematocrit 50.4 % Mean Corpuscular Volume 91.9 FL Mean Corpuscular Hemoglobin 30.6 PG Mean Corpuscular Hemoglobin 33.3 % Concent Red Cell Distribution Width 14.1 % Platelet Count 249 TH/MM3 Mean Platelet Volume 9.9 FL Neutrophils (%) (Auto) 67.8 % Lymphocytes (%) (Auto) 16.3 % Monocytes (%) (Auto) 11.9 % Eosinophils (%) (Auto) 1.0 % Basophils (%) (Auto) 3.0 % Neutrophils # (Auto) 5.8 TH/MM3 Lymphocytes # (Auto) 1.4 TH/MM3 Monocytes # (Auto) 1.0 TH/MM3 Eosinophils # (Auto) 0.1 TH/MM3 Basophils # (Auto) 0.3 TH/MM3 CBC Comment DIFF FINAL Differential Comment Sodium Level 133 MEQ/L Potassium Level 3.2 MEQ/L Chloride Level 94 MEQ/L Carbon Dioxide Level 27.7 MEQ/L Anion Gap 11 MEQ/L Blood Urea Nitrogen 20 MG/DL Creatinine 1.30 MG/DL Estimat Glomerular Filtration 44 ML/MIN Rate Random Glucose 96 MG/DL Calcium Level 8.9 MG/DL Total Bilirubin 0.4 MG/DL Aspartate Amino Transf 45 U/L (AST/SGOT) Alanine Aminotransferase 39 U/L (ALT/SGPT) Alkaline Phosphatase 77 U/L Total Protein 8.2 GM/DL Albumin 3.9 GM/DL Lipase 449 U/L Urine Color QUINN Urine Turbidity CLEAR Urine pH 5.5 Urine Specific [place] 1.030 Urine Protein 100 mg/dL Urine Glucose (UA) NEG mg/dL Urine Ketones TRACE mg/dL Urine Occult Blood TRACE Urine Nitrite NEG Urine Bilirubin NEG Urine Leukocyte Esterase NEG Urine RBC 0-3 /hpf Urine WBC 3-5 /hpf Urine Squamous Epithelial > 8 /hpf Cells Urine Bacteria FEW /hpf Urine Mucus MOD /lpf Microscopic Urinalysis Comment CULT NOT INDICATED MDM Medical Decision Making Medical Screen Exam Complete: Yes Emergency Medical Condition: Yes Medical Record Reviewed: Yes Interpretation(s) Laboratory Tests Test 11/23/16 11/23/16 14:12 16:10 Red Blood Count 5.48 MIL/MM3 (4.00-5.30) Hemoglobin 16.8 GM/DL (11.6-15.3) Hematocrit 50.4 % (35.0-46.0) Monocytes (%) (Auto) 11.9 % (0.0-8.0) Basophils (%) (Auto) 3.0 % (0.0-2.0) Monocytes # (Auto) 1.0 TH/MM3 (0-0.9) Basophils # (Auto) 0.3 TH/MM3 (0-0.2) Sodium Level 133 MEQ/L (136-145) Potassium Level 3.2 MEQ/L (3.5-5.1) Chloride Level 94 MEQ/L (98-107) Blood Urea Nitrogen 20 MG/DL (7-18) Creatinine 1.30 MG/DL (0.50-1.00) Estimat Glomerular Filtration 44 ML/MIN (>89) Rate Aspartate Amino Transf 45 U/L (15-37) (AST/SGOT) Lipase 449 U/L (73-393) Urine Color QUINN (YELLW/STRAW) Urine Protein 100 mg/dL (NEG-TRACE) Urine Ketones TRACE mg/dL (NEG) Urine Occult Blood TRACE (NEG) Urine Squamous Epithelial > 8 /hpf (0-5) Cells Urine Bacteria FEW /hpf (NONE) Urine Mucus MOD /lpf (OCC) Differential Diagnosis Nausea, vomiting, diarrhea, left flank painspancreatitis versus UTI/ pyelonephritis versus musculoskeletal versus dehydration versus metabolic issues Narrative Course A review of patient's workup during the last visit including CT of the abdomen pelvis last night did not show any signs of acute intra-abdominal processes. Lab work shows that her potassium is improved. She does have increase in BUN/ creatinine creatinine indicative of underlying dehydration. Patient was given several bags of IV fluids and Zofran in the ER. She had no further vomiting episodes. At this point, considering she's not doing well as an outpatient, I have talked to the patient regarding observation admission. However, she states that she thinks she can do well as an outpatient if she was just given ODT Zofran. I have also added Phenergan. She does not want to stay at this time and will be released with follow-up to primary care physician. Return for any worsening in vomiting, decreased by mouth intake, worsening symptoms, and as needed. The plan has been discussed with her and she states understanding. Diagnosis Primary Impression: Dehydration Additional Impression: Nausea vomiting and diarrhea Med/Other Pt SpecificInfo: Prescription(s) given Scripts Tramadol 50 Mg Tab50 Mg PO Q4H PRN (PAIN) #15 TAB Ref 0 Prov:Kristal Pinon MD 11/23/16 Promethazine (Phenergan)25 Mg Aanrnd05 Mg PO Q6H PRN (NAUSEA OR VOMITING) #7 TAB Ref 0 Prov:Kristal Pinon MD 11/23/16 Ondansetron Odt (Zofran Odt)4 Mg Tab4 Mg SL Q6HR PRN (Nausea/Vomiting) #7 TAB Ref 0 Prov:Kristal Pinon MD 11/23/16 Disposition: 01 DISCHARGE HOME Condition: Stable Krisatl Pinon MD Nov 23, 2016 14:02
[2016-11-23 14:15] VITALS: O2SAT 96
[2016-11-23 14:27] LABS: AUTOMATED NEUTROPHIL # 5.8 TH/MM3 (1.8-7.7); BASOPHIL # 0.3 TH/MM3 (0-0.2); EOSINOPHIL # 0.1 TH/MM3 (0-0.4); HEMATOCRIT 50.4 % (35.0-46.0); HEMO FLAGS DIFF FINAL; LYMPH % 16.3 % (9.0-44.0); LYMPHOCYTE # 1.4 TH/MM3 (1.0-4.8); MEAN CELL VOLUME 91.9 FL (80.0-100.0); MEAN CORPUSCULAR HEMOGLOBIN 30.6 PG (27.0-34.0); MEAN CORPUSCULAR HGB CONC 33.3 % (32.0-36.0); MONO % 11.9 % (0.0-8.0); NEUT % 67.8 % (16.0-70.0); PLATELET COUNT 249 TH/MM3 (150-450); RED BLOOD COUNT 5.48 MIL/MM3 (4.00-5.30); RED CELL DISTRIBUTION WIDTH 14.1 % (11.6-17.2); WHITE BLOOD COUNT 8.6 TH/MM3 (4.0-11.0)
[2016-11-23 14:38] LABS: CHLORIDE 94 MEQ/L (98-107); POTASSIUM 3.2 MEQ/L (3.5-5.1); SODIUM (NA) 133 MEQ/L (136-145)
[2016-11-23 14:58] LABS: ALKALINE PHOSPHATASE 77 U/L (45-117); ALT (GPT) 39 U/L (10-53); ANION GAP 11 MEQ/L (5-15); AST (GOT) 45 U/L (15-37); BICARBONATE 27.7 MEQ/L (21.0-32.0); BLOOD UREA NITROGEN 20 MG/DL (7-18); GLOMERULAR FILTRATION RATE 44 ML/MIN (>89); TOTAL BILIRUBIN ADULT 0.4 MG/DL (0.2-1.0)
[2016-11-23] MEDS ORDERED: POTASSIUM CHLORIDE 10 MEQ CONTROLLED RELEASE TAB PO ONE (15:15)
[2016-11-23] MEDS ORDERED: SODIUM CHLOR 0.9% 1000 ML INJ 1,000 ML IV ONE (15:15)
[2016-11-23 16:14] VITALS: BP 90/53; PULSE 70; O2SAT 100
[2016-11-23 16:17] LABS: BLOOD, URINE TRACE (NEG); GLUCOSE,URINE NEG (NEG); KETONE, URINE TRACE mg/dL (NEG); NITRITE,URINE NEG (NEG); PH, URINE 5.5 (5.0-8.5)
[2016-11-23 16:23] LABS: URINE COLOR AMBER (YELLW/STRAW)
[2016-11-23 16:24] LABS: BACTERIA, URINE FEW /hpf; COMMENT (UR) CULT NOT INDICATED; CULTURE IF INDICATED CULT NOT INDICATED; MUCUS URINE MOD /lpf (OCC); RBC, URINE 0-3 /hpf (0-3); SQUAMOUS EPITHELIAL CELL URINE > 8 /hpf (0-5)
[2016-11-23] MEDS ORDERED: ZOFR4TAB3 SL (16:29)
[2016-11-23] MEDS ORDERED: PROM25TA10 PO (16:29)
[2016-11-23] MEDS ORDERED: TRAM50TA PO (16:31)
[2016-11-23] MEDS ORDERED: traMADol HCL 50 MG TAB PO ONE (16:45)
[2016-11-23 16:52] VITALS: BP_SYST 85; BP_DIAS 34; BP_DIAS 58; PULSE 78; RESP 16
== END 2016-11-23 17:15 | disposition home or self-care (01) ==
LOC: PHED 13:42
DX: E86.0 Dehydration (principal); R19.7 Diarrhea, unspecified
CPT/HCPCS: 80053; 81001; 83690; 85025; 96361; 96374; 96375; 99284; J1170; J2405; J7030

== ENCOUNTER → 2017-08-20 | Day surgery (SDC) | payer MEDICARE ==
[~2017-08-20] MED LIST changes: +ACETAMINOPHEN 1000 MG/100 ML 100 ML IV ONE; -BUDE3CAP PO; -HYOS0.128 PO; +HYOS1TAB9 PO; +LACTATED RINGER'S 1000 ML INJ 1,000 ML ONE; -MACR100C2 PO; +MIDAZOLAM HCL 2 MG/2 ML VIAL ONE; +NEOMYCIN/POLYMYXIN/BACITRACIN OINT 15 GM TUBE ONE; +ONDANSETRON HCL 4 MG/2 ML VIAL IV PUSH ONE; +PRAM0.5T PO; +PROM25TA10 PO; +PROPOFOL 200 MG/20 ML AMP IV ONE; +TRAM50TA PO; -ZOFR4TAB PO; +ceFAZolin INJ 1,000 MG VIAL ONE
--- NOTE | 2017-08-24 11:33 | TN ---
cc: Jose Enrique Jones MD DATE OF SURGERY: 08/20/2017 PREOPERATIVE DIAGNOSIS: Basal cell carcinoma located on the left sideburn and the right posterior neck. PROCEDURE: Wide local excision. PROCEDURE IN DETAIL: She was properly consented, marked and anesthetized, the skin sterilized with Microcyn, sterile draping applied. Attention first was directed to the right posterior neck where an ellipse was done that measures 2.5 cm x 1.5 cm. This included the margins. Very meticulous hemostasis and layered closure was utilized with 3-0 Monocryl suture in the dermis and subcu. Attention was directed to the left sideburn where this lesion was ellipsed including the margin, was about 1.5 cm x 1.5 cm. I rotated the sideburn into the defect for a secondary defect of 2.5 x 1.5 cm tissue rearrangement. I utilized 3-0 Monocryl suture and 5-0 fast-absorbing gut. Good viability of the tissue was noted at the end of the case. Fast absorbent dressings were applied. The patient tolerated the procedure well. MD SHAWNA Kidd/RAMY , 11:35 AM , 12:00 PM MTDDarrell
--- NOTE | 2017-08-24 11:57 | TN ---
cc: Jose Enrique Jones MD DATE OF SURGERY: 08/20/2017 PREOPERATIVE DIAGNOSIS: Basal cell carcinoma located on the postauricular area and basal cell carcinoma located on the left lutheran area. PROCEDURE IN DETAIL: The patient was properly consented, marked, anesthetized, the skin sterilized with Microcyn, sterile draping applied. A total of approximately 20 mL of 1% lidocaine with epinephrine was injected. I proceeded then to perform an elliptical excision located on the right postauricular area with measurements of 1.5 x 5 cm. This was sent to pathology for permanent analysis, and that was closed utilizing a 4-0 Monocryl suture in the dermis and subcutaneous running. Attention was directed to the left lutheran area where excision was done on this lesion measuring 1 x 0.5 cm. This was properly ellipsed along with 15 blade and was sent to pathology for further analysis. This was closed in the same fashion, intermediate repair utilizing 4-0 Monocryl suture in the dermis and subcutaneous. Dressings were applied. The patient tolerated procedure well. MD SHAWNA Kidd/KELLY , 11:39 AM , 11:55 AM [email or web address]
== END | disposition home or self-care (01) ==
LOC: ESDC 08:01
PROVIDERS: ATTEND Plastic Surgery
DX: C44.319 Basal cell carcinoma of skin of other parts of face (principal); C44.41 Basal cell carcinoma of skin of scalp and neck
CPT/HCPCS: 00300; 11623; 14040; 88305; J0131; J0690; J2250; J2405; J3010; J7120